=== PATIENT | male | born 1940 | race Caucasian/White ===

== ENCOUNTER 2020-06-23 09:28 | Day surgery (SDC) | payer MEDICARE, BC ==
[~2020-06-23 09:28] MED LIST: Lactated Ringers 1,000 ML IV SCH; Sodium Chloride 0.9% 10 ML SDV IV PRN; Sodium Chloride 0.9% 10 ML Syringe FLUSH PRN; Sodium Chloride 0.9% 2.5 ML Syringe FLUSH PRN; ceFAZolin 2 GM in Premix Bag 1 BAG IV ONE
--- NOTE | 2020-06-23 10:10 | PCM.PREANE ---
Preanesthetic Assessment - Anesthesia/Transfusion/Family Hx Anesthesia History: Prior Anesthesia Without Reaction Transfusion History: No Prior Transfusion(s) - Review of Systems General: No Symptoms Pulmonary: No Symptoms Cardiovascular: No Symptoms Gastrointestinal: No Symptoms Neurological: No Symptoms Other: Reports: None - Physical Assessment Height: 6 ft Weight: 117.934 kg ASA Class: 2 Airway Class: Mallampati = 2 Dentition: Reports: Normal Dentition, Missing Tooth/Teeth ROM/Head Extension: Full Lungs: Clear to Auscultation, Normal Respiratory Effort Cardiovascular: Regular Rate, Regular Rhythm - Allergies Allergies/Adverse Reactions: Allergies Allergy/AdvReac Type Severity Reaction Status Date / Time No Known Allergies Allergy Verified 06/19/20 12:33 - Blood Blood Available: No - Anesthesia Plan Pre-Op Medication Ordered: None - Acknowledgements Anesthesia Type Planned: General Anesthesia Pt an Appropriate Candidate for the Planned Anesthesia: Yes Alternatives and Risks of Anesthesia Discussed w Pt/Guardian: Yes Pt/Guardian Understands and Agrees with Anesthesia Plan: Yes Additional Comments: PMH: htn, dm2, hld, PLAN: ga/lma PreAnesthesia Questionnaire HEENT History: Reports: Glaucoma, Hard of Hearing Other HEENT History: wears glasses, reynold hearing aids Cardiovascular History: Reports: Hypertension Respiratory History: Reports: None Gastrointestinal History: Reports: None Genitourinary History: Reports: Other (See Below) Other Genitourinary History: currently has bladder mass & hematuria Musculoskeletal History: Reports: Fracture Neurological History: Reports: Other (See Below) Other Neuro History: benign essential tremors Psychiatric History: Reports: None Endocrine/Metabolic History: Reports: Diabetes, Type II, Obesity/BMI 30+ Hematologic History: Reports: None Immunologic History: Reports: None Oncologic (Cancer) History: Reports: Other (See Below) Other Oncologic History: bladder tumor Dermatologic History: Reports: None - Infectious Disease History Infectious Disease History: Reports: None - Past Surgical History Head Surgeries/Procedures: Reports: None HEENT Surgical History: Reports: Cataract Surgery Cardiovascular Surgical History: Reports: None Respiratory Surgical History: Reports: None GI Surgical History: Reports: Hernia, Inguinal Male Surgical History: Reports: None Endocrine Surgical History: Reports: None Neurological Surgical History: Reports: None Musculoskeletal Surgical History: Reports: ORIF Other Musculoskeletal Surgeries/Procedures:: ORIF rt ankle fx Dermatological Surgical History: Reports: None - SUBSTANCE USE Smoking Status *Q: Former Smoker Tobacco Use Within Last Twelve Months: No Recreational Drug Use History: No - HOME MEDS Home Medications: Home Meds Bimatoprost [Lumigan 0.01% Ophth Soln] 1 drop EYEBOTH BEDTIME 06/19/20 [History] Diltiazem HCl [Diltiazem 24Hr ER] 360 mg PO DAILY 06/19/20 [History] Multivitamin [Multivitamins] 1 tab PO DAILY 06/19/20 [History] Potassium Chloride 20 meq PO DAILY 06/19/20 [History] Quinapril HCl 20 mg PO DAILY 06/19/20 [History] Simvastatin 20 mg PO DAILY 06/19/20 [History] hydroCHLOROthiazide [Hydrochlorothiazide] 50 mg PO DAILY 06/19/20 [History] metFORMIN HCl [Metformin HCl] 1,000 mg PO BID 06/19/20 [History] - CURRENT (IN HOUSE) MEDS Current Meds: Current Medications Lactated Ringer's (Ringers, Lactated) 1,000 mls @ 100 mls/hr IV ASDIRECTED TYESHA Sodium Chloride (Saline Flush) 2.5 ml FLUSH ASDIRECTED PRN PRN Reason: Keep Vein Open Sodium Chloride (Normal Saline) 10 ml IV ASDIRECTED PRN PRN Reason: IV Use Sodium Chloride (Saline Flush) 10 ml FLUSH ASDIRECTED PRN PRN Reason: Keep Vein Open Discontinued Medications Cefazolin Sodium/Dextrose 2 gm (/ Premix) 50 mls @ 100 mls/hr IV ONCALL ONE Stop: 06/23/20 00:30
[2020-06-23] MEDS ORDERED: fentaNYL 100 MCG/2 ML SDV ONE (10:36)
[2020-06-23] MEDS ORDERED: Propofol 200 MG/20 ML SDV ONE (10:36)
[2020-06-23] MEDS ORDERED: Ondansetron 4 MG/2 ML SDV ONE (10:36)
[2020-06-23] MEDS ORDERED: Midazolam 1 MG/ML 2 ML SDV ONE (10:36)
[2020-06-23] MEDS ORDERED: ceFAZolin/Dextrose,Iso-Osmotic 2 GM/50 ML Duplex Bag IV ONE (11:57)
[2020-06-23] MEDS ORDERED: Glycopyrrolate 0.2 MG/ML SDV ONE (12:11)
[2020-06-23] MEDS ORDERED: ePHEDrine 50 MG/ML SDV ONE (12:24)
--- NOTE | 2020-06-23 13:59 | PCM.POSTAN ---
POST ANESTHESIA ASSESSMENT - MENTAL STATUS Mental Status: Alert, Oriented - VITAL SIGNS Vital Signs: Last Vital Signs Temp 97.2 F 06/23/20 13:00 Pulse 82 06/23/20 13:10 Resp 11 L 06/23/20 13:10 BP 176/70 H 06/23/20 13:10 Pulse Ox 94 L 06/23/20 13:10 - RESPIRATORY Respiratory Status: Respiratory Rate WNL, Airway Patent, O2 Saturation Stable - CARDIOVASCULAR CV Status: Pulse Rate WNL, Blood Pressure Stable - GASTROINTESTINAL GI Status: No Symptoms - POST OP HYDRATION Hydration Status: Adequate & Stable
--- NOTE | 2020-06-23 14:00 | PCM48HPAN ---
Post Anesthesia Note - EVALUATION WITHIN 48HRS OF ANESTHETIC Vital Signs in Normal Range: Yes Patient Participated in Evaluation: Yes Respiratory Function Stable: Yes Airway Patent: Yes Cardiovascular Function Stable: Yes Hydration Status Stable: Yes Pain Control Satisfactory: Yes Nausea and Vomiting Control Satisfactory: Yes Mental Status Recovered: Yes Vital Signs: Last Vital Signs Temp 97.2 F 06/23/20 13:00 Pulse 82 06/23/20 13:10 Resp 11 L 06/23/20 13:10 BP 176/70 H 06/23/20 13:10 Pulse Ox 94 L 06/23/20 13:10
--- NOTE | 2020-06-23 14:52 | OR ---
SURGEON: Aj Bhakta M.D. 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 POSTOPERATIVE DIAGNOSIS: Transition cell carcinoma of the bladder. OPERATION PERFORMED: TURBT, medium right posterior wall. PRIMARY SURGEON: Aj Bhakta M.D. DESCRIPTION OF PROCEDURE: The patient was given general anesthesia, was placed in dorsal lithotomy position, prepped and draped in sterile drapes. The resectoscope is introduced in the bladder without difficulty. The tumor was resected in its entirety. The area surrounding the tumor suspicious for CIS was biopsied and then fulgurated. The base of the tumor was separately biopsied using the cold cup biopsy forceps. Specimens: Bladder tumor, base of bladder tumor, and bladder biopsies. All bleeding points were fulgurated. The bladder was irrigated and a 16-[place] Jansen catheter was placed and estimated blood loss was under 20 mL. The patient tolerated the procedure well and was moved to recovery room in good condition. JOSE FRANCISCO / BETI /[id number]
[2020-06-23] MEDS ORDERED: Simvastatin 20 MG Tab PO SCH (21:00)
[2020-06-23] MEDS ORDERED: metFORMIN 500 MG Tab PO SCH (21:00)
[2020-06-24] MEDS ORDERED: Diltiazem 180 MG Cap.CD PO SCH (09:00)
[2020-06-24] MEDS ORDERED: Hydrochlorothiazide 25 MG Tab PO SCH (09:00)
[2020-06-24] MEDS ORDERED: Potassium Chloride 20 MEQ Tab.ER PO SCH (09:00)
[2020-06-24] MEDS ORDERED: Multivitamin Tab PO SCH (09:00)
== END 2020-06-23 14:50 | disposition home or self-care (01) ==
LOC: MW.SDS 09:28
PROVIDERS: ATTEND Urology
DX: C67.4 Malignant neoplasm of posterior wall of bladder (principal); F17.210 Nicotine dependence, cigarettes, uncomplicated; I10 Essential (primary) hypertension; E66.9 Obesity, unspecified; Z79.84 Long term (current) use of oral hypoglycemic drugs; Z68.35 Body mass index [BMI] 35.0-35.9, adult; Z01.812 Encounter for preprocedural laboratory examination; Z20.828 Contact with and (suspected) exposure to other viral communicable diseases; Z79.899 Other long term (current) drug therapy; Z98.890 Other specified postprocedural states
CPT/HCPCS: 52235; 82962; 88305; 88307; J0690; J2001; J2250; J2405; J2704; J3010; J3490; J7120; 00914